=== PATIENT | female | born 1985 | race Caucasian/White ===

== ENCOUNTER 2016-12-23 15:42 | Observation (INO) | payer OTHER ==
[~2016-12-23] VITALS: Ht 162.6 cm; Wt 103.9 kg
[~2016-12-23 15:42] MED LIST: CALC1TAB15 PO; NOCURR
[2016-12-23] MEDS ORDERED: PREN1TAB80 PO (16:01)
[2016-12-23 16:31] LABS: GLUCOSE,POINT OF CARE 83 MG/DL (70-110)
[2016-12-23 19:05] LABS: GLUCOSE,POINT OF CARE 101 MG/DL (70-110)
[2016-12-23 20:37] VITALS: BP 99/58
[2016-12-23 23:02] LABS: GLUCOSE COMMENT 1 Doctor Notified; GLUCOSE,POINT OF CARE 79 MG/DL (70-110)
[2016-12-24 06:17] LABS: GLUCOSE COMMENT 1 Doctor Notified; GLUCOSE,POINT OF CARE 76 MG/DL (70-110)
[2016-12-24 11:31] LABS: GLUCOSE COMMENT 1 Post Meal; GLUCOSE,POINT OF CARE 106 MG/DL (70-110)
[2016-12-24 13:40] LABS: GLUCOSE COMMENT 1 Post Meal; GLUCOSE,POINT OF CARE 129 MG/DL (70-110)
[2016-12-24 13:40] LABS: GLUCOSE COMMENT 1 FASTING; GLUCOSE,POINT OF CARE 78 MG/DL (70-110)
== END 2016-12-24 14:40 | disposition home or self-care (01) ==
LOC: 4S 15:42
PROVIDERS: ADMIT Obstetrics & Gynecology; ATTEND Obstetrics & Gynecology
DX: O24.410 Gestational diabetes mellitus in pregnancy, diet controlled (principal); Z3A.36 36 weeks gestation of pregnancy
CPT/HCPCS: 36415; 59025; 82962 ×2; 83036; G0378 ×2

== ENCOUNTER 2017-01-07 11:00 | Observation (INO) | payer OTHER ==
[~2017-01-07] VITALS: Ht 152.4 cm; Wt 103.4 kg
[~2017-01-07 11:00] MED LIST changes: +PREN1TAB80 PO
[2017-01-07 11:10] VITALS: BP 111/73
[2017-01-07 11:37] LABS: GLUCOSE COMMENT 1 Doctor Notified; GLUCOSE,POINT OF CARE 120 MG/DL (70-110)
[2017-01-07 19:21] LABS: GLUCOSE,POINT OF CARE 105 MG/DL (70-110)
== END 2017-01-07 14:05 | disposition home or self-care (01) ==
LOC: 4S 11:00
PROVIDERS: ADMIT Obstetrics & Gynecology; ATTEND Obstetrics & Gynecology
DX: O24.419 Gestational diabetes mellitus in pregnancy, unspecified control (principal); Z3A.38 38 weeks gestation of pregnancy
CPT/HCPCS: 36415; 59025; 82962; 83036; G0378

== ENCOUNTER 2017-01-14 12:00 | Inpatient (IN) | payer OTHER ==
[~2017-01-14] VITALS: Ht 164 cm; Wt 103.0 kg
[~2017-01-14 12:00] MED LIST changes: -NOCURR
[2017-01-14] MEDS ORDERED: RINGERS SOLUTION,LACTATED 1,000 ML IV PRN (13:31)
[2017-01-14] MEDS ORDERED: OXYTOCIN 30 UNITS/LACT RINGERS 500 ML IV ONE (13:31)
[2017-01-14] MEDS ORDERED: METOCLOPRAMIDE HCL 5 MG/ML 2 ML VIAL IVP PRN (13:45)
[2017-01-14] MEDS ORDERED: CITRIC ACID/SODIUM CITRATE 30 ML SOLUTION UDCUP PO PRN (13:45)
[2017-01-14] MEDS ORDERED: DINOPROSTONE 10 MG VAGINAL SUPPOSITORY VG ONE (13:45)
[2017-01-14 14:02] LABS: BASOPHILS # (AUTO) 0.05 K/uL (0.00-0.20); BASOPHILS % (AUTO) 0.5 % (0.0-2.0); EOSINOPHILS # (AUTO) 0.03 K/uL (0.00-0.70); HEMATOCRIT 34.2 % (36-46); HEMOGLOBIN 11.5 g/dL (12.0-16.0); LYMPHOCYTES # (AUTO) 1.6 K/uL (1.0-4.8); LYMPHOCYTES % (AUTO) 17.5 % (22.0-44.0); MEAN CORPUSCULAR HEMOGLOBIN 28.2 pg (26.0-34.0); MEAN CORPUSCULAR HGB CONC 33.6 G/dL (31.0-37.0); MEAN CORPUSCULAR VOLUME 84 fL (80-100); MONOCYTES # (AUTO) 0.8 K/uL (0.1-1.0); MONOCYTES % (AUTO) 8.5 % (2.0-9.0); NEUTROPHILS # (AUTO) 6.8 K/uL (1.8-7.7); NEUTROPHILS % (AUTO) 73.2 % (40.0-70.0); RED BLOOD CELL COUNT(AUTO) 4.07 MIL/uL (4.00-5.20); WHITE BLOOD COUNT (AUTO) 9.2 K/uL (4.5-11.0)
[2017-01-14] MEDS: RINGERS SOLUTION,LACTATED 1,000 ML IV SCH ×3 (14:18→20:30)
[2017-01-14] MEDS ORDERED: OXYTOCIN 30 UNITS/LACT RINGERS 500 ML IV PRN (15:06)
[2017-01-14] MEDS ORDERED: INFLUENZA VIRUS VACCINE QVS 2016-17 (3YR+)/PF 60 MCG/0.5 ML SYRINGE IM ONE (17:00)
[2017-01-14 17:30] VITALS: BP 108/77
[2017-01-14] MEDS: FentaNYL CITRATE-PF 100 MCG/2 ML VIAL IVP PRN ×2 (19:51→19:56)
[2017-01-14] MEDS: OXYGEN THERAPY IH SCH (20:00)
[2017-01-14] MEDS ORDERED: LIDOCAINE HCL 2%/EPI 1:200,000/PF 10 ML VIAL ONE (20:30)
[2017-01-14] MEDS ORDERED: FentaNYL/BUPIV 0.125%/NS/PF 200 ML ED ONE (20:30)
[2017-01-14] MEDS ORDERED: FentaNYL/BUPIV 0.125%/NS/PF 200 ML ED PRN (21:38)
[2017-01-14] MEDS ORDERED: ONDANSETRON HCL 4 MG/2 ML VIAL IVP PRN (21:45)
[2017-01-14] MEDS ORDERED: PROMETHAZINE HCL 25 MG/ML VIAL IM PRN (21:45)
[2017-01-14] MEDS ORDERED: NALBUPHINE HCL 10 MG/ML VIAL IVP PRN (21:45)
[2017-01-14] MEDS ORDERED: DiphenhydrAMINE HCL 50 MG/ML VIAL IVP PRN (21:45)
[2017-01-15] MEDS: RINGERS SOLUTION,LACTATED 1,000 ML IV SCH (01:22)
[2017-01-15] MEDS ORDERED: -PHARMACY NOTE- MISC ONE ×2 (01:45)
[2017-01-15] MEDS: OXYGEN THERAPY IH SCH (02:47)
[2017-01-15] MEDS ORDERED: ACETAMINOPHEN/CODEINE 300-30 MG TABLET PO PRN ×2 (03:15)
[2017-01-15] MEDS: GLYCERIN/WITCH HAZEL LEAF 40 PADS JAR TP PRN ×2 (03:55→09:36)
[2017-01-15] MEDS: BENZOCAINE 20%/MENTHOL 56 GM SPRAY CANISTER TP PRN ×2 (03:55→09:36)
[2017-01-15] MEDS: LANOLIN 7 GM OINTMENT TP PRN ×2 (03:55→09:35)
[2017-01-15] MEDS: IBUPROFEN 600 MG TABLET PO PRN ×3 (06:07→18:31)
[2017-01-15] MEDS ORDERED: SENNA/DOCUSATE SODIUM 187-50 MG TABLET PO SCH (09:00)
[2017-01-15] MEDS ORDERED: MAGNESIUM HYDROXIDE SUSPENSION 30 ML UDCUP PO SCH (09:00)
[2017-01-16] MEDS: IBUPROFEN 600 MG TABLET PO PRN ×2 (00:04→08:51)
[2017-01-16] MEDS ORDERED: DSS100 PO (10:27)
[2017-01-16] MEDS ORDERED: IBUP-2070 PO (10:27)
== END 2017-01-16 11:50 | disposition home or self-care (01) | DRG 775 ==
LOC: 4S 12:00 → OBSVTOIN 12:00
PROVIDERS: ADMIT Obstetrics & Gynecology; ATTEND Obstetrics & Gynecology
PROC: 0W8NXZZ Division of Female Perineum, External Approach (ICD-10-PCS; principal; 2017-01-14)
PROC: 10E0XZZ Delivery of Products of Conception, External Approach (ICD-10-PCS; 2017-01-14)
PROC: 0KQM0ZZ Repair Perineum Muscle, Open Approach (ICD-10-PCS; 2017-01-14)
PROC: 3E0S3CZ (ICD-10-PCS; 2017-01-14)
PROC: 00HU33Z Insertion of Infusion Device into Spinal Canal, Percutaneous Approach (ICD-10-PCS; 2017-01-14)
PROC: 10907ZC Drainage of Amniotic Fluid, Therapeutic from Products of Conception, Via Natural or Artificial Opening (ICD-10-PCS; 2017-01-14)
PROC: 3E0234Z Introduction of Serum, Toxoid and Vaccine into Muscle, Percutaneous Approach (ICD-10-PCS; 2017-01-14)
DX: O63.9 Long labor, unspecified (principal); O24.429 Gestational diabetes mellitus in childbirth, unspecified control; O76 Abnormality in fetal heart rate and rhythm complicating labor and delivery; O70.1 Second degree perineal laceration during delivery; O69.81X0 Labor and delivery complicated by cord around neck, without compression, not applicable or unspecified; O77.0 Labor and delivery complicated by meconium in amniotic fluid; Z37.0 Single live birth; Z3A.39 39 weeks gestation of pregnancy; Z23 Encounter for immunization
CPT/HCPCS: 90471; J2590; J3010; J3490; J7120